=== PATIENT | male | born 2000 | race Caucasian/White ===

== ENCOUNTER 2020-01-15 09:37 | Emergency (ER) | payer OTHER ==
[~2020-01-15] VITALS: Ht 172.7 cm; Wt 75.0 kg
[2020-01-15 09:45] VITALS: BP 123/82; TEMP 98.1
[2020-01-15 10:40] VITALS: PULSE 88
== END 2020-01-15 10:40 | disposition home or self-care (01) ==
LOC: COL.ER 09:37
DX: S63.501A Unspecified sprain of right wrist, initial encounter (principal); X50.1XXA Overexertion from prolonged static or awkward postures, initial encounter; Y93.72 Activity, wrestling; Y92.9 Unspecified place or not applicable